=== PATIENT | female | born 1955 | race Asian ===

== ENCOUNTER 2018-06-10 09:13 | Inpatient (IN) | payer OTHER ==
[~2018-06-10] VITALS: Ht 154.9 cm; Wt 54.0 kg
[2018-06-10 09:15] VITALS: BP 146/90
--- NOTE | 2018-06-10 09:23 | NUR ---
PT BEDSIDE TRIAGED IN ED BED 11, REPORT GIVEN TO RUSH MARCELO. EDMD AWARE OF PT STATUS.
--- NOTE | 2018-06-10 09:25 | NUR ---
62F BIB DAUGHTER WITH C/O MIDSTERNAL NON PROVOKED NON RADIATING CHEST PAIN THAT STARTED WHILE PATIENT AT HOME SITTING X 3 DAYS AGO. PT ALSO REPORTS SOB. PT DENIES ANY NAUSEA OR DIZZINESS. 100% PULSE OX ON RA. RR ARE EVEN AND UNLABORED. SKIN IS DRY/WARM/COLOR APPRIORIATE FOR AGE. CLEAR SPEECH WITH FULL SENTENCES. PT IS AO TO PERSON, PLACE, SITUATION, AND TIME. AWAITNG ER EVAL. PT TO CARDIAC, BP, PULSE, AND PULSE OX MONITORING. NAD. VSS. WILL CONTINUE TO MONITOR. ER MD AWARE OF PT STATUS.
[2018-06-10] MEDS ORDERED: NACL 0.9% 1,000 ML IV ONE (09:30)
[2018-06-10] MEDS ORDERED: ASPIRIN 81 MG TAB.CHEW PO ONE (09:30)
[2018-06-10 09:52] LABS: BASOPHILS % (AUTO) 0.6 % (0.0-2.0); EOSINOPHILS # (AUTO) 0.5 K/uL (0-0.4); EOSINOPHILS % (AUTO) 10.2 % (0.0-4.0); HEMATOCRIT 39.8 % (36-48); HEMOGLOBIN 13.2 g/dL (12.0-16.0); LYMPHOCYTES # (AUTO) 1.7 K/uL (2.5-16.5); LYMPHOCYTES % (AUTO) 34.7 % (20.5-51.1); MEAN CORPUSCULAR HEMOGLOBIN 30 pg (27-31); MEAN CORPUSCULAR HGB CONC 33 g/dL (33-37); MEAN CORPUSCULAR VOLUME 90.1 fL (80-94); MONOCYTES # (AUTO) 0.3 K/uL (0.8-1.0); MONOCYTES % (AUTO) 7.1 % (1.7-9.3); NEUTROPHILS # (AUTO) 2.3 K/uL (1.8-7.7); NEUTROPHILS % (AUTO) 47.4 % (42.2-75.2); PLATELET COUNT (AUTO) 250 K/uL (140-450); RED BLOOD CELL COUNT(AUTO) 4.41 MIL/uL (4.20-5.40); RED CELL DISTRIBUTION WIDTH 14.1 % (11.6-13.7); WHITE BLOOD COUNT (AUTO) 4.9 K/uL (4.8-10.8)
[2018-06-10 10:13] LABS: PROTHROMBIN TIME 9.7 secs (10.8-13.4)
[2018-06-10 10:14] LABS: ANION GAP 12.1 (8-16); CARBON DIOXIDE 25.3 mmol/L (21-32); CREATININE 0.6 mg/dL (0.6-1.3); POTASSIUM 3.4 mmol/L (3.5-5.1)
[2018-06-10 10:21] LABS: ALBUMIN 4.5 g/dL (3.4-5.0); TOTAL BILIRUBIN 0.7 mg/dL (0.0-1.0)
--- NOTE | 2018-06-10 10:29 | NUR ---
daughter by bedside. ivf infusing without difficulty. vss. awaiting xray results. all needs met at this time. will continue to monitor.
[2018-06-10] MEDS ORDERED: METOPROLOL 25 MG TAB PO ONE (10:40)
[2018-06-10] MEDS ORDERED: MORPHINE SULFATE 2 MG/ML SYR IVP ONE (10:40)
[2018-06-10] MEDS ORDERED: SIMV40TA1 PO (11:19)
[2018-06-10] MEDS ORDERED: ALBU4TAB21 PO (11:19)
[2018-06-10] MEDS ORDERED: PSE1TAB69 PO (11:19)
[2018-06-10] MEDS ORDERED: ZOLP5TAB1 PO (11:19)
[2018-06-10] MEDS ORDERED: ASPI81CT89 PO (11:33)
[2018-06-10] MEDS ORDERED: FLONAS NS (11:33)
[2018-06-10] MEDS ORDERED: LOSA50TA39 PO (11:33)
[2018-06-10] MEDS ORDERED: ALBU0.0912 IH (11:36)
--- NOTE | 2018-06-10 11:37 | NUR ---
awaiting admission bed; patient denies any cp or any type of pain. vss.
--- NOTE | 2018-06-10 11:50 | NUR ---
PT O2 SAT 92% RA, RR 20, ASKED PT IF SHE FEELS SOB, PT STATES, "YES, I HAVE ASTHMA NOW". PLACED HOB AT 45 DEGREES, APPLIED O2 VIA NC AT 2 L/MIN. O2 SAT WENT UP TO 98% ON [address] VERDUZCO. CALL BACK FROM DR DOUGLAS THE CUSTODY OFFICER ORDERS FOR ATROVENT/XOPENEX BREATHING TREATMENT Q4H AND ALBUTEROL INHALER PRN. WILL PUT IN ORDERS. CALLED RT FOR PTS BREATHING TREATMENT. RT AT BEDSIDE, PT RECEIVING BREATHING TX. WILL CONTINUE TO MONITOR PT Addendum: 06/11/18 at 0659 by Hali Da Silva RN TIME IS 234906/10/18 Addendum: 06/11/18 at 0700 by Hali Da Silva RN TIME 2350 06/10/18
--- NOTE | 2018-06-10 11:50 | NUR ---
PT O2 SAT 92% RA, RR 20, ASKED PT IF SHE FEELS SOB, PT STATES, "YES, I HAVE ASTHMA NOW". PLACED HOB AT 45 DEGREES, APPLIED O2 VIA NC AT 2 L/MIN. O2 SAT WENT UP TO 98% ON [address] VERDUZCO. CALL BACK FROM DR DOUGLAS THE ADMISSIONS CONSULTANT ORDERS FOR ATROVENT/XOPENEX BREATHING TREATMENT Q4H AND ALBUTEROL INHALER PRN. WILL PUT IN ORDERS. CALLED RT FOR PTS BREATHING TREATMENT. RT AT BEDSIDE, PT RECEIVING BREATHING TX. WILL CONTINUE TO MONITOR PT
[2018-06-10] MEDS ORDERED: ONDANSETRON 4 MG/2 ML VIAL IVP PRN (12:00)
--- NOTE | 2018-06-10 12:03 | NUR ---
Patient will be admitted to [facility]. Admited to Tele. Will go to room 119B. Belongings list completed. Bedside report to Rebeca MARCELO.
--- NOTE | 2018-06-10 12:10 | NUR ---
ADMITTED FROM ER. RECEIVED REPORT FROM [facility] ER NURSE. PT ABLE TO AMBULATE INDEPENDENTLY WITH STEADY GAIT, AAO X 4, DENIES ANY PAIN OR DISCOMFORT. PT ORIENTED TO ROOM AND UNIT. RESPIRATIONS EVEN UNLABORED ON ROOM AIR. DENIES ANY CHEST PAIN. 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 SAFETY PRECAUTIONS IN PLACE. PLAN OF CARE REVIEWED. WILL CONTINUE TO MONITOR.
[2018-06-10 12:30] VITALS: BP 124/76
--- NOTE | 2018-06-10 12:30 | NUR ---
ADMISSION ASSESSMENT & QUESTIONNAIRES DONE VIA DAUGHTER LORI ON THE PHONE. PT OK TO HAVE DAUGHTER TRANSLATE.
[2018-06-10] MEDS ORDERED: IBUPROFEN 400 MG TAB PO PRN (14:15)
[2018-06-10] MEDS ORDERED: ZOLPIDEM 5 MG TAB PO PRN (15:20)
[2018-06-10 16:00] VITALS: BP 104/67
[2018-06-10] MEDS: HYDROcodone/APAP 5/325 MG 1 TAB TAB PO PRN (18:21)
[2018-06-10 18:33] LABS: CREATINE KINASE MB 0.9 ng/mL (0-3.6)
--- NOTE | 2018-06-10 19:15 | NUR ---
RECEIVED BEDSIDE REPORT FROM DAY SHIFT NURSE CECY. PT RESTING COMFORTABLY IN BED, TALKING ON PHONE, NO SIGNS OF ACUTE DISTRESS. ON RA, IV IN RIGHT AC INFUSING NS AT 100 ML/HR, DRESSING INTACT, AND CLEAN. UPDATED BOARD EXPLAINED PLAN OF CARE, CALL LIGHT WITHIN REACH, WILL CONTINUE TO MONITOR.
--- NOTE | 2018-06-10 19:15 | NUR ---
REPORT GIVEN TO WINDOWS PHONE DEVELOPER NURSE. PT ALERT, VERBAL, NO SIGNS OF DISTRESS.
[2018-06-10 20:00] VITALS: BP 124/73
--- NOTE | 2018-06-10 21:00 | NUR ---
PT SLEEPING IN BED NO SIGN OF DISTRESS, CALL LIGHT WITHIN REACH WILL CONTINUE TO MONITOR.
[2018-06-11] VITALS: BP 109/54
[2018-06-11] MEDS ORDERED: ALBUTEROL SULFATE/IPRATROPIU 3 ML SOL IH PRN (00:10)
[2018-06-11] MEDS ORDERED: IPRATROPIUM 0.02% 0.5 MG/2.5 ML NEBU INH PRN (00:10)
--- NOTE | 2018-06-11 00:47 | NUR ---
PT RESTING IN BED HOB AT 45 DEGREES, O2 SAT 99 ON 2 L NC. ASKED IS PT FEELS BETTER PT STATED "YES". CALL LIGHT WITHIN REACH WILL CONTINUE TO MONITOR.
[2018-06-11 02:03] LABS: CREATINE KINASE MB 1.1 ng/mL (0-3.6)
--- NOTE | 2018-06-11 03:30 | NUR ---
PT SLEEPING IN BED, NO SIGNS OF DISTRESS, CALL LIGHT WITHIN REACH, WILL CONTINUE TO MONITOR.
[2018-06-11 04:00] VITALS: BP 120/78
--- NOTE | 2018-06-11 05:30 | NUR ---
PT RESTING IN BED, FLUSHED IV IN RIGHT AC WITH 10 ML NS. IV SITE PATENT AND DRESSING INTACT. CALL LIGHT WITHIN REACH WILL CONTINUE TO MONITOR.
[2018-06-11 06:38] LABS: BASOPHILS % (AUTO) 0.5 % (0.0-2.0); EOSINOPHILS # (AUTO) 0.5 K/uL (0-0.4); EOSINOPHILS % (AUTO) 11.2 % (0.0-4.0); HEMATOCRIT 36.6 % (36-48); HEMOGLOBIN 12.3 g/dL (12.0-16.0); LYMPHOCYTES % (AUTO) 42.6 % (20.5-51.1); MEAN CORPUSCULAR HEMOGLOBIN 31 pg (27-31); MEAN CORPUSCULAR HGB CONC 34 g/dL (33-37); MEAN CORPUSCULAR VOLUME 91.6 fL (80-94); MONOCYTES # (AUTO) 0.4 K/uL (0.8-1.0); MONOCYTES % (AUTO) 8.1 % (1.7-9.3); NEUTROPHILS # (AUTO) 1.7 K/uL (1.8-7.7); NEUTROPHILS % (AUTO) 37.6 % (42.2-75.2); PLATELET COUNT (AUTO) 224 K/uL (140-450); RED BLOOD CELL COUNT(AUTO) 3.99 MIL/uL (4.20-5.40); RED CELL DISTRIBUTION WIDTH 14.3 % (11.6-13.7); WHITE BLOOD COUNT (AUTO) 4.6 K/uL (4.8-10.8)
[2018-06-11 06:55] LABS: ANION GAP 9.8 (8-16); CARBON DIOXIDE 28.3 mmol/L (21-32); CREATININE 0.8 mg/dL (0.6-1.3); POTASSIUM 4.1 mmol/L (3.5-5.1)
--- NOTE | 2018-06-11 07:16 | NUR ---
BEDSIDE REPORT GIVEN TO DAY SHIFT RN [place], PT STABLE.
--- NOTE | 2018-06-11 07:17 | NUR ---
RECEIVED REPORT AT BEDSIDE FROM HOB GRINDER NURSE FOR CONTINUITY OF CARE. PT RESTING COMFORTABLY IN BED, SLEEPING. NO SIGNS OF ACUTE DISTRESS OR SOB ON RA. IV IN RIGHT AC 20G, PATENT, ASYMPTOMATIC, AND INTACT, SALINE LOCKED. DRESSING INTACT, AND CLEAN. UPDATED BOARD EXPLAINED PLAN OF CARE, PATIENT VERBALIZED UNDERSTANDING. SAFETY PRECAUTION IN PLACE, CALL LIGHT WITHIN REACH, WILL CONTINUE TO MONITOR PATIENT.
[2018-06-11 08:00] VITALS: BP 100/47
[2018-06-11] MEDS: ASPIRIN 81 MG TAB.CHEW PO SCH (08:47)
[2018-06-11] MEDS: PANTOPRAZOLE 40 MG INJ VIAL IVP SCH (08:47)
[2018-06-11] MEDS: HYDROcodone/APAP 5/325 MG 1 TAB TAB PO PRN ×2 (08:47→17:04)
--- NOTE | 2018-06-11 08:47 | NUR ---
ORDERED MEDICATIONS GIVEN. PATIENT REFUSED LOVENOX BY STATING THAT SHE IS AMBULATORY AND DOES NOT WANT IT. RN EDUCATED PATIENT BENEFITS OF MEDICATION, PATIENT VERBALIZED UNDERSTANDING, SAID THANK YOU, AND REFUSED. PATIENT ALSO C/O 7/10 LOWER BACK PAIN, NORCO PRN GIVEN. PATIENT TOLERATED MEDICATIONS WELL. NO SIGNS OF DISTRESS OR SOB NOTED ON ROOM AIR, PATIENT DENIES CHEST PAIN. DR. VERDUZCO IN TO SEE PATIENT. WILL AWAIT FOR HIS ORDERS. WILL CONTINUE TO MONITOR PATIENT.
--- NOTE | 2018-06-11 08:48 | NUR ---
PATIENT HAS BEEN SCREENED AND CATEGORIZED MODERATE NUTRITION RISK. PATIENT WILL BE SEEN WITHIN 3-5 DAYS OF ADMISSION. 05/12/18 05/14/[address]
[2018-06-11] MEDS: ENOXAPARIN 40 MG/0.4 ML SYR SUBQ SCH (08:54)
[2018-06-11 08:58] LABS: CHOL/HDL RATIO 4.3 (1-4.5)
--- NOTE | 2018-06-11 09:43 | NUR ---
PATIENT OFF FLOOR TO RADIOLOGY FOR XRAY OF LUMBAR SPINE. WILL WAIT FOR RESULTS.
--- NOTE | 2018-06-11 09:55 | NUR ---
PATIENT BACK ON FLOOR, RESTING IN BED, NO SIGNS OF DISTRESS OR SOB NOTED ON ROOM AIR. PATIENT DENIES CHEST PAIN. STATES BACK PAIN IS TOLERABLE. WILL CONTINUE TO MONITOR PATIENT.
[2018-06-11 12:00] VITALS: BP 109/70
--- NOTE | 2018-06-11 12:16 | NUR ---
CM NOTE INITIAL REVIEW FAXED TO [facility] [phone]
--- NOTE | 2018-06-11 13:05 | NUR ---
PATIENT RESTING IN BED, NO SIGN OF DISTRESS OR C/O OF CHEST PAIN. PT C/O OF LOWER BACK PAIN. DOES NOT WANT MEDICATION AT THE MOMENT. WILL CONTINUE TO MONITOR PATIENT.
--- NOTE | 2018-06-11 13:14 | NUR ---
ECHO COMPLETED. NOTIFIED DR. DUEÑAS ON RESULTS. TREADMILL STRESS TEST CANCELLED PER DR. DUEÑAS REQUEST
--- NOTE | 2018-06-11 15:23 | NUR ---
PATIENT RESTING IN BED, SPEAKING ON PHONE, NO SIGNS OF DISTRESS OR SOB OR CHEST PAIN NOTED. WILL CONTINUE TO MONITOR PATIENT.
[2018-06-11 16:00] VITALS: BP 97/66
[2018-06-11] MEDS ORDERED: PANT40EC PO (16:34)
--- NOTE | 2018-06-11 17:04 | NUR ---
PATIENT C/O 10 BACK PAIN. NORCO PRN GIVEN. PATIENT TOLERATED IT WELL. NO SIGNS OF DISTRESS OR SOB OR CHEST PAIN ON ROOM AIR. WILL CONTINUE TO MONITOR PATIENT.
--- NOTE | 2018-06-11 19:15 | NUR ---
PATIENT REPORT GIVEN TONIGHT SHIFT NURSE AT BEDSIDE FOR CONTINUITY OF CARE. PATIENT IN STABLE CONDITION.
--- NOTE | 2018-06-11 19:15 | NUR ---
RECEIVED BEDSIDE REPORT FROM RN EMETERIO. PT IN BED AWAKE AND ALERT ABLE TO MAKE NEEDS KNOWN. IV SL IN RIGHT AC. PT PULLING AT DRESSING, REINFORCED DRESSING WITH TAPE. UPDATED BOARD EXPLAINED PLAN OF CARE WILL CONTINUE TO MONITOR.
--- NOTE | 2018-06-11 19:30 | NUR ---
PT PULLING OUT IV IN RIGHT AC. D/C IV, CATH INTACT. WILL START NEW IV.
[2018-06-11 20:00] VITALS: BP 101/64
--- NOTE | 2018-06-11 20:12 | NUR ---
PT C/O DIFFICULTY SLEEPING. WILL MEDICATE WITH AMBIEN ACCORDING TO ALTA IGNACIO.
--- NOTE | 2018-06-11 22:17 | NUR ---
ATTEMPTED TO START IV PT STATED "NO". DID NOT START IV.
[2018-06-12] VITALS: BP 111/64
--- NOTE | 2018-06-12 00:27 | NUR ---
PT SLEEPING IN BED, NO SIGNS OF DISTRESS, V/S TAKEN ALL WITHIN BASELINE. CALL LIGHT WITH IN REACH.
--- NOTE | 2018-06-12 01:57 | NUR ---
PT RESTING IN BED, NO SIGNS OF DISTRESS, CALL LIGHT WITHIN REACH, BED IN LOWEST POSITION. WILL CONTINUE TO MONITOR.
--- NOTE | 2018-06-12 02:48 | NUR ---
ASKED IF CAN START IV. PT STATED "NO". DID NOT START IV. PT CURRENTLY HAS NO IV ACCESS. WILL CONTINUE TO MONITOR. CALL LIGHT WITH IN REACH.
[2018-06-12 04:00] VITALS: BP 110/72
--- NOTE | 2018-06-12 04:49 | NUR ---
PT SLEEPING IN BED NO SIGNS OF DISTRESS. WILL CONTINUE TO MONITOR. CALL LIGHT WITHIN REACH.
--- NOTE | 2018-06-12 07:10 | NUR ---
RECEIVED PATIENT REPORT AT BEDSIDE. PATIENT AWAKE, ALERT AND ORIENTED. NO S/S OF DISTRESS. DENIES CHEST PAIN AT THIS TIME. PATIENT ON TELE MONITORING. BED LOWERED WITH CALL LIGHT WITHIN REACH. WILL CONTINUE TO MONITOR
--- NOTE | 2018-06-12 07:24 | NUR ---
BEDSIDE REPORT GIVEN TO FOZIA ANGEL, PT DALE.
[2018-06-12 08:00] VITALS: BP 121/80
--- NOTE | 2018-06-12 08:34 | NUR ---
BRET CRESPO RECEIVED ORDER TO TRANSFER TO [facility] FOR CARDIAC CATH. SPOKE WITH BRET MACIEL OF [facility] PH# [phone] AND GAVE HER VERBAL CLINICAL UPDATE ON THE PATIENT AND INFORMED HER OF THE ORDER TO TRANSFER TO [facility] FOR CARDIAC CATH. PER [facility] BRET MACIEL, FOR [facility] MED TRANSPORT AUTH# [id number], FOR [facility] AUTH# [id number]. FAXED [facility] THE ORDER, CONSULTATION REPORT, ECHOCARDIOGRAM AND EKG REPORTS. SPOKE WITH MIRNA OF [facility] [facility] WHO CONFIRMED THAT PATIENT IS SCHEDULED FOR CARDIAC CATH WITH DR. Ellen DUEAÑS AT 1430 TIME TODAY AND HAS TO STOP BY AND BE AT THEIR ER BY NOON. SHE ALSO REQUESTED CLINICAL PACKET TO BE FAXED TO [facility] [phone]. FAXED CLINICAL PACKET TO [facility] [phone] AND MIRNA CONFIRMED THAT THEY HAVE RECEIVED IT. PER DENNYS OF [facility] PH# [phone], PATIENT WILL BE PICKED UP AT 1115 TIME TODAY GOING TO [facility]. CHARGE NURSE BRAXTON EMERSON. Addendum: 06/12/18 at 0847 by Abiola Garnett CM MIRNA OF [facility] [employer] PH# [phone]
[2018-06-12] MEDS ORDERED: ACET-9525 PO (08:47)
[2018-06-12] MEDS ORDERED: ASPI81CT95 PO (08:47)
[2018-06-12] MEDS: ASPIRIN 81 MG TAB.CHEW PO SCH (09:00)
[2018-06-12] MEDS: PANTOPRAZOLE 40 MG INJ VIAL IVP SCH (09:00)
[2018-06-12] MEDS: ENOXAPARIN 40 MG/0.4 ML SYR SUBQ SCH (09:00)
--- NOTE | 2018-06-12 11:00 | NUR ---
GAVE PATIENT REPORT TO FOZIA CAMARILLO AT [facility] CARDIAC [facility]
--- NOTE | 2018-06-12 11:20 | NUR ---
PATIENT PICKED UP BY [facility] TO BE TRANSFERRED TO [facility]. DAUGHTER PRESENT IN THE ROOM. DISCHARGE INSTRUCTIONS GIVEN. PATIENT'S DAUGHTER VERBALIZED UNDERSTANDING. PATIENT LEFT WITH ALL HER BELONGINGS AND DISCHARGE PAPERS. PATIENT LEFT IN STABLE CONDITION
--- NOTE | 2018-06-13 07:55 | NUR ---
FAXED DISCHARGE SUMMARY TO [facility] [phone]
== END 2018-06-12 11:20 | disposition short-term general hospital (02) | DRG 200 ==
LOC: MED 09:13 → OBSVTOIN 11:45 → MTU 11:45
PROVIDERS: ADMIT Internal Medicine; ATTEND Internal Medicine
DX: I35.1 Nonrheumatic aortic (valve) insufficiency (principal); I10 Essential (primary) hypertension; R07.89 Other chest pain; K21.9 Gastro-esophageal reflux disease without esophagitis; E78.5 Hyperlipidemia, unspecified; J45.909 Unspecified asthma, uncomplicated; M19.90 Unspecified osteoarthritis, unspecified site; E78.00 Pure hypercholesterolemia, unspecified; G89.29 Other chronic pain; M54.9 Dorsalgia, unspecified
CPT/HCPCS: 36415; 71045; 72110; 80048; 80053; 82550; 82553; 83735; 84484; 85025; 85610; 85730; 87081; 93005; 94640; 96374; 99285; C9113; J2270; J7620; Q0092